=== PATIENT | male | born 1960 | race African-American/Black ===

== ENCOUNTER → 2021-06-20 | Outpatient (CLI) | payer MEDICARE, MEDICAID | END | disposition home or self-care (01) | LOC: CARD 14:58 | PROVIDERS: ATTEND Specialist | DX: Z01.810 Encounter for preprocedural cardiovascular examination (principal); I44.4 Left anterior fascicular block; R00.1 Bradycardia, unspecified | CPT/HCPCS: 71045; 93005 ==